=== PATIENT | male | born 1965 | race African-American/Black ===

== ENCOUNTER 2023-07-22 12:23 | Emergency (ER) | payer SELFPAY ==
[~2023-07-22] VITALS: Ht 170.2 cm; Wt 79.0 kg
[2023-07-22 12:25] VITALS: BP 150/98; PULSE 146; RESP 16; TEMP 98; O2SAT 100
== END 2023-07-22 12:28 | disposition left against medical advice (07) ==
LOC: ER 12:23
DX: T65.91XA Toxic effect of unspecified substance, accidental (unintentional), initial encounter (principal); Z53.21 Procedure and treatment not carried out due to patient leaving prior to being seen by health care provider; Y92.9 Unspecified place or not applicable
CPT/HCPCS: 99281